=== PATIENT | female | born 1940 | race Caucasian/White ===

== ENCOUNTER 2022-11-01 06:08 | Day surgery (SDC) | payer OTHER, MEDICARE ==
[2022-10-25 13:58] VITALS: BMI 27.1
[2022-11-01] MEDS ORDERED: BUPIVACAINE HCL/PF 0.25% (2.5MG/ML) 10 ML VIAL ONE (07:16)
[2022-11-01] MEDS ORDERED: LIDOCAINE HCL 1%, 10 MG/ML (20ML VIAL) ONE (07:16)
[2022-11-01] MEDS ORDERED: ONDANSETRON 4 MG/2 ML VIAL IVPUSH PRN (07:43)
[2022-11-01] MEDS ORDERED: ACETAMINOPHEN 325 MG TABLET (FP) PO PRN (07:43)
[2022-11-01] MEDS ORDERED: LACTATED RINGERS SOLUTION 1,000 ML IV SCH (07:45)
[2022-11-01] MEDS ORDERED: ACETAMINOPHEN INJECTION 100 ML IVPB ONE (07:46)
[2022-11-01] MEDS ORDERED: MIDAZOLAM HCL 2 MG/2 ML SINGLE DOSE VIAL ONE (07:46)
[2022-11-01] MEDS ORDERED: LIDOCAINE HCL/PF 2% SDV 5ML VIAL ONE (08:07)
[2022-11-01] MEDS ORDERED: PROPOFOL 20 ML ONE (08:07)
[2022-11-01] MEDS ORDERED: ceFAZolin SODIUM 1 GM VIAL ONE ×2 (08:14)
[2022-11-01 08:54] VITALS: PULSE 60; TEMP 96.9
[2022-11-01 09:21] VITALS: BP 110/65; RESP 18
== END 2022-11-01 09:31 | disposition home or self-care (01) ==
LOC: FASU 06:08
PROVIDERS: ATTEND Orthopaedic Surgery
PROC: 0LN70ZZ Release Right Hand Tendon, Open Approach (ICD-10-PCS; principal; 2022-11-01 08:22)
DX: M65.341 Trigger finger, right ring finger (principal)
CPT/HCPCS: 88304-TC